=== PATIENT | male | born 1960 | race Caucasian/White ===

== ENCOUNTER → 2019-09-23 | Outpatient (CLI) | payer MEDICAID | END | disposition home or self-care (01) | LOC: LABPAT 12:21 | PROVIDERS: ATTEND Surgery Plastic and Reconstructive Surgery | DX: Z01.810 Encounter for preprocedural cardiovascular examination (principal) | CPT/HCPCS: 93005 ==

== ENCOUNTER → 2019-09-30 | Outpatient (CLI) | payer MEDICAID ==
--- NOTE | 2019-09-30 10:34 | FL ---
EXAMINATION TYPE: FL barium swallow DATE OF EXAM: 09/30/2019 CLINICAL HISTORY: Dysphasia TECHNIQUE: A double contrast esophagram is performed utilizing air and barium. A total of 26 second s of fluoroscopic time was utilized during procedure. 19 images submitted. COMPARISON: None FINDINGS: The esophagus shows normal motility and emptying into the stomach. No evidence of hiatal h ernia or stricture noted. Mild gastroesophageal reflux. Mild fold thickening of the distal esophagus correlate for mild esophagitis. Hypertrophic and degenerative change of the spine. IMPRESSION: Mild gastroesophageal reflux. Correlate for mild esophagitis. Correlate with direct visua lization as clinically warranted..
== END | disposition home or self-care (01) ==
LOC: RADUSWWP 09:50
PROVIDERS: ATTEND Surgery Plastic and Reconstructive Surgery
DX: K21.9 Gastro-esophageal reflux disease without esophagitis (principal)
CPT/HCPCS: 74220

== ENCOUNTER 2019-10-04 09:36 | Day surgery (SDC) | payer MEDICAID ==
[2019-10-01 09:48] VITALS: BMI 29.2
--- NOTE | 2019-10-04 06:28 | P.GSHP ---
History of Present Illness H&P Date: 10/04/19 CHIEF COMPLAINT: Inguinal hernia, right. HISTORY OF PRESENT ILLNESS: The patient is a 59-year-old male who presents with a history of swelling and pain along the right groin. He has noted increased swelling including pain of the area. Now he presents for repair of his inguinal hernia. PAST MEDICAL HISTORY: Please see list. PAST SURGICAL HISTORY: Please see list. MEDICATIONS: Please see list. ALLERGIES: Please see list. SOCIAL HISTORY: No illicit drug use FAMILY HISTORY: No reports of Crohn disease or ulcerative colitis. REVIEW OF ORGAN SYSTEMS: CONSTITUTIONAL: No reports of fevers or chills. No reports of weight loss despite prior attempts. GI: Denies any blood in stools or constipation. PHYSICAL EXAM: VITAL SIGNS: Stable GENERAL: Well-developed pleasant in no acute distress. HEENT: No scleral icterus. Extraocular movements grossly intact. Moist buccal mucosa. NECK: Supple without lymphadenopathy. CHEST: Unlabored respirations. Equal bilateral excursions. CARDIOVASCULAR: Regular rate and rhythm. Distal 2+ pulses. ABDOMEN: Soft, nondistended. No peritoneal signs. Tender along right groin. MUSCULOSKELETAL: No clubbing, cyanosis, or edema. ASSESSMENT: 1. Inguinal hernia, right initial and symptomatic. PLAN: 1. Recommend proceeding robotic inguinal repair with mesh with possible bilateral approach. 2. Benefits and risks of surgical intervention was discussed including possibility of open technique. 3. DVT prophylaxis. 4. Antibiotic prophylaxis. Past Medical History Past Medical History: No Reported History Additional Past Medical History / Comment(s): "heartburn", consitpation, History of Any Multi-Drug Resistant Organisms: None Reported Past Surgical History: Appendectomy, Cholecystectomy, Hernia Repair Additional Past Surgical History / Comment(s): vasectomy, left inguinal hernia Past Anesthesia/Blood Transfusion Reactions: Motion Sickness Smoking Status: Former smoker - Past Family History Mother Family Medical History: No Reported History Medications and Allergies Home Medications Medication Instructions Recorded Confirmed Type Ascorbic Acid [Vitamin C] 1,000 mg PO BID 10/01/19 10/01/19 History Cholecalciferol [Vitamin D3 (25 2,000 unit PO DAILY 10/01/19 10/01/19 History Mcg = 1000 Iu)] Multivitamins, Thera [Multivitamin 1 tab PO DAILY 10/01/19 10/01/19 History (formulary)] [place]-3 Fatty Acids/Fish Oil [Fish 1 each PO DAILY 10/01/19 10/01/19 History Oil 1,000 mg Softgel] Oregano Oil 1 applicate PO DAILY 10/01/19 10/01/19 History Phytonadione [Vitamin K] 100 mcg PO DAILY 10/01/19 10/01/19 History Zinc Gluconate [Zinc] 50 mg PO DAILY 10/01/19 10/01/19 History Allergies Allergy/AdvReac Type Severity Reaction Status Date / Time No Known Allergies Allergy Verified 10/01/19 09:36
[~2019-10-04 09:36] MED LIST: ACETAMINOPHEN TAB 500 MG TAB PO STA; DEXAMETHASONE SOD PHOSPHATE 10 MG/ML 1 ML VIAL IV ONE; GABAPENTIN 300 MG CAP PO STA; HEPARIN SODIUM,PORCINE 5,000 UNIT/ML 1 ML VIAL SQ ONE; ONDANSETRON 4 MG/2 ML VIAL IVP ONE; SCOPOLAMINE 1.5MG/72HR PATCH TRANSDERM ONE; TAMSULOSIN 0.4 MG CAP.ER.24H PO ONE
[2019-10-04] MEDS ORDERED: MIDAZOLAM 2 MG/2 ML VIAL IVP ONE ×2 (09:37)
[2019-10-04] MEDS ORDERED: fentaNYL (PF) 50 MCG/ML 2 ML AMP IVP ONE ×2 (09:37)
[2019-10-04] MEDS ORDERED: ONDANSETRON 4 MG/2 ML VIAL IVP ONE (09:37)
[2019-10-04] MEDS ORDERED: ACETAMINOPHEN TAB 500 MG TAB ONE (09:43)
[2019-10-04] MEDS ORDERED: ONDANSETRON 4 MG/2 ML VIAL ONE ×2 (10:04→11:44)
[2019-10-04] MEDS: LACTATED RINGERS 1,000 ML IV SCH ×3 (10:10→17:00)
[2019-10-04 10:14] LABS: Basophils # (A) 0.1 k/uL (0-0.2); Basophils % (A) 1 %; Eosinophils # (A) 0.4 k/uL (0-0.7); Eosinophils % (A) 5 %; HCT 50.1 % (39.0-53.0); Lymphocytes # (A) 1.8 k/uL (1.0-4.8); Lymphocytes % (A) 23 %; MCH 29.5 pg (25.0-35.0); MCV 86.7 fL (80.0-100.0); Mean Platelet Volume 6.9; Monocytes # (A) 0.5 k/uL (0-1.0); Monocytes % (A) 6 %; Neutrophils # (A) 4.8 k/uL (1.3-7.7); Neutrophils % (A) 63 %; Platelet Count 228 k/uL (150-450); RBC 5.78 m/uL (4.30-5.90); RDW 12.6 % (11.5-15.5); WBC 7.7 k/uL (3.8-10.6)
[2019-10-04 10:30] LABS: ALT 36 U/L (4-49); AST 30 U/L (17-59); African American GFR (CKD) >90 (>60 ml/min/1.73 sqM); Albumin 4.9 g/dL (3.5-5.0); Alkaline Phosphatase 68 U/L (38-126); Anion Gap 10 mmol/L; Blood Urea Nitrogen 17 mg/dL (9-20); Calcium 9.7 mg/dL (8.4-10.2); Carbon Dioxide 24 mmol/L (22-30); Chloride 104 mmol/L (98-107); Glucose 115 mg/dL (74-99); Non-African American GFR(CKD) >90 (>60 ml/min/1.73 sqM); Potassium 4.2 mmol/L (3.5-5.1); Sodium 138 mmol/L (137-145); Total Bilirubin 2.4 mg/dL (0.2-1.3); Total Protein 7.7 g/dL (6.3-8.2)
[2019-10-04] MEDS ORDERED: fentaNYL (PF) 50 MCG/ML 2 ML AMP ONE (11:44)
[2019-10-04] MEDS ORDERED: GLYCOPYRROLATE 0.2 MG/ML 2 ML VIAL ONE (11:44)
[2019-10-04] MEDS ORDERED: ePHEDrine SULFATE/0.9% NACL/PF 50 MG/5 ML SYRINGE IV ONE (11:44)
[2019-10-04] MEDS ORDERED: NEOSTIGMINE 1 MG/ML 10 ML VIAL ONE (11:44)
[2019-10-04] MEDS ORDERED: SUCCINYLCHOLINE CHLORIDE 100 MG/5 ML SYR IV ONE (11:44)
[2019-10-04] MEDS ORDERED: MIDAZOLAM 2 MG/2 ML VIAL ONE (11:44)
[2019-10-04] MEDS ORDERED: PROPOFOL 10 MG/ML 20 ML VIAL IV ONE (11:44)
[2019-10-04] MEDS ORDERED: PHENYLEPHRINE-0.9% NACL SYG 1 MG/10 ML SYRINGE ONE (11:44)
[2019-10-04] MEDS ORDERED: LIDOCAINE 1% INJ 10MG/ML (20 ML MDV) ONE (11:44)
[2019-10-04] MEDS ORDERED: ROCURONIUM BROMIDE 10 MG/ML 5 ML VIAL IV ONE (11:44)
[2019-10-04] MEDS ORDERED: LIDOCAINE 1%-EPI 1:100,000 20 ML VIAL SQ ONE (12:18)
[2019-10-04] MEDS ORDERED: LACTATED RINGERS 1,000 ML IV ONE (12:25)
[2019-10-04] MEDS: HYDROmorphone 0.5 MG/0.5 ML SYRINGE IVP PRN ×4 (13:43→14:15)
[2019-10-04 13:49] VITALS: TEMP 97.4
--- NOTE | 2019-10-04 13:55 | P.OP ---
Date of Procedure: 10/04/19 Description of Procedure: SURGEON: GIN BA MD PREOPERATIVE DIAGNOSES: 1. Initial right inguinal hernia. 2. Previous history of left inguinal hernia 3. Gastroesophageal reflux disease 4. Previous history of ruptured appendicitis POSTOPERATIVE DIAGNOSES: 1. Initial right inguinal hernia with incarceration, omentum 2. Previous history of left inguinal hernia 3. Gastroesophageal reflux disease 4. Previous history of ruptured appendicitis 5. Severe right lower quadrant and right upper quadrant peritoneal adhesions OPERATION: 1. Robotic-assisted da Jorge Xi laparoscopic lysis of adhesions, over 30 minutes 2. Robotic-assisted da Jorge Xi laparoscopic repair of incarcerated initial right inguinal hernia with mesh, 11.[address] ANESTHESIA: General with local anesthetic ESTIMATED BLOOD LOSS: 5 mL. SPECIMENS REMOVED: Right inguinal hernia sac COMPLICATIONS: None. FINDINGS: 1. Nyhus type I indirect inguinal hernia, reducible, initial, 2 cm 2. Non-absorbable 2-0 VLOC used 3. Moderate peritoneal adhesions omentum to abdominal wall right upper quadrant to right lower quadrant. 4. Incarcerated greater omentum in right inguinal hernia reduced 5. No recurrent left inguinal hernia INDICATIONS: The patient is a 59-year-old gentleman who presents with history of right groin pain. He has previous history of ruptured appendicitis with recurrent right upper and right lower quadrant abdominal pain including previous left inguinal hernia surgery. Now presents for definitive surgical intervention. Laparoscopic versus open and robotic approaches were discussed. Benefits and risks including bleeding, infection, injury to the vas deferens as well as sterility and chronic groin pain were reviewed. Placement of mesh was also described. Informed consent was obtained. DESCRIPTION: In the preoperative area, the patient was marked with indelible marker along the inguinal hernia. The patient was brought to the operating room and initially laid in supine position. The abdomen had been prepped and draped in standard sterile fashion. Ioban draping was also placed. Prior to incision, a timeout protocol was confirmed with surgical team regarding patient's name including procedures to be performed and location along the right groin. Initial positioning for the robotic assisted ports were selected whereby 20 cm superior to the target anatomy, 0 degree 5 mm laparoscopic trocar entry was performed at the left upper quadrant. The abdomen was insufflated to 15 mmHg which he had tolerated well. Diagnostic laparoscopy demonstrated a indirect inguinal hernia along the right groin. Next, along the epigastrium, 8 mm robot trocar was placed. An 8-mm robotic trocar was placed under direct visualization at the right upper quadrant. An 8 mm port was placed at the left upper quadrant. All trocars were positioned between 8 to 10-cm apart from each other. The [employer] XI robot was primed, draped, prepared for docking along the right side of the patient. The patient was placed in Trendelenberg position 16-degrees. I then went to the [employer] Xi console. The assistant commissioner was at bedside for exchange of the robot arms and equipment. Moderate peritoneal adhesions of greater omentum to abdominal wall was found inv olving the right upper and right lower quadrant. The greater omentum was incarcerated in the right inguinal hernia. Extensive lysis of adhesions over 30 minutes was performed using scissors with cautery including vessel sealer. All adhesions were taken down including at the hernia sac. No hernia was identified along the left groin. The right inguinal hernia sac was evaginated whereby the peritoneum was scored using Endo scissors with cautery. Once completely reduced into the abdominal cavity, the peritoneal sac of the hernia was stripped along an indirect inguinal hernia and sac was resected and then passed off for further pathological analysis. The size of the hernia defect was 2 cm with intraoperative films obtained. Using a 2-0 VLOC, the peritoneal defect of the right inguinal hernia site was closed using a pursestring suture. The defect was found to be completely closed with complete reduction of the right direct inguinal hernia was confirmed. As an onlay, an 11.[address] mesh by [employer] was initially cut in half and entered into the abdominal cavity via the 8 mm trocar. The mesh was tacked to the pelvis using 2-0 VLOC 9-inch length sutures. The robot was undocked from the patient's bedside. I then rescrubbed into the case. Insufflation was released from the abdominal cavity and all instruments were removed from the abdominal cavity. The rest of incisions were reapproximated using 4-0 Monocryl in a running subcuticular fashion. Local anesthetic was placed along the incision including for a right groin block. Incisions were cleansed using dilute hydrogen peroxide. Liquid glue was applied to the skin. At the end of the procedure, the needle, sponge and instrument counts had been verified correct by the surgical services tech. The patient had tolerated the procedure well and was taken to the postanesthesia care unit in stable condition. Plan - Discharge Summary Discharge Rx Participant: Yes New Discharge Prescriptions: New Ibuprofen [Motrin] 600 mg PO Q8HR PRN #30 tab PRN Reason: Pain Acetaminophen Tab [Tylenol Tab] 1,000 mg PO Q6HR PRN #30 tablet PRN Reason: Pain Continue Zinc Gluconate [Zinc] 50 mg PO DAILY Phytonadione [Vitamin K] 100 mcg PO DAILY Ascorbic Acid [Vitamin C] 1,000 mg PO BID Multivitamins, Thera [Multivitamin (formulary)] 1 tab PO DAILY [place]-3 Fatty Acids/Fish Oil [Fish Oil 1,000 mg Softgel] 1 each PO DAILY Cholecalciferol [Vitamin D3 (25 Mcg = 1000 Iu)] 2,000 unit PO DAILY Oregano Oil 1 applicate PO DAILY Discharge Medication List Ascorbic Acid [Vitamin C] 1,000 mg PO BID 10/01/19 [History] Cholecalciferol [Vitamin D3 (25 Mcg = 1000 Iu)] 2,000 unit PO DAILY 10/01/19 [History] Multivitamins, Thera [Multivitamin (formulary)] 1 tab PO DAILY 10/01/19 [History] [place]-3 Fatty Acids/Fish Oil [Fish Oil 1,000 mg Softgel] 1 each PO DAILY 10/01/19 [History] Oregano Oil 1 applicate PO DAILY 10/01/19 [History] Phytonadione [Vitamin K] 100 mcg PO DAILY 10/01/19 [History] Zinc Gluconate [Zinc] 50 mg PO DAILY 10/01/19 [History] Acetaminophen Tab [Tylenol Tab] 1,000 mg PO Q6HR PRN #30 tablet 10/04/19 [Rx] Ibuprofen [Motrin] 600 mg PO Q8HR PRN #30 tab 10/04/19 [Rx] Follow up Appointment(s)/Referral(s): Gin Ba MD [STAFF PHYSICIAN] - 10/12/19 Patient Instructions/Handouts: Inguinal Hernia Repair (DC), Laparoscopic Herniorrhaphy (IP) Activity/Diet/Wound Care/Special Instructions: No lifting over 10 pounds in 2 weeks until Oct 24June shower. No bath tub soaks for two weeks until Oct 24 Diet as tolerated. Use Tylenol and ibuprofen or Aleve scheduled for the next 24-48 hours for best pain relief. Use ice along incisions for the today to prevent swelling. Discharge Disposition: HOME SELF-CARE
[2019-10-04 17:17] VITALS: BP 103/67; PULSE 60; RESP 18
== END 2019-10-04 17:20 | disposition home or self-care (01) ==
LOC: OR 09:36
PROVIDERS: ATTEND Surgery Plastic and Reconstructive Surgery
DX: K40.30 Unilateral inguinal hernia, with obstruction, without gangrene, not specified as recurrent (principal); K66.0 Peritoneal adhesions (postprocedural) (postinfection); K21.9 Gastro-esophageal reflux disease without esophagitis; Z87.19 Personal history of other diseases of the digestive system; Z79.899 Other long term (current) drug therapy; Z87.891 Personal history of nicotine dependence; Z90.49 Acquired absence of other specified parts of digestive tract; Z98.52 Vasectomy status; Z98.890 Other specified postprocedural states
CPT/HCPCS: 80053; 85025; 49650; J1644; J1100; J0690; J2405; J1170; 88302

== ENCOUNTER → 2021-05-23 | Outpatient (CLI) | payer MEDICAID ==
--- NOTE | 2021-05-23 11:08 | CONS ---
CONSULTATION DATE OF SERVICE: 05/23/2021 This 60-year-old gentleman has been evaluated in [facility] for possible obstructive sleep apnea-hypopnea syndrome and significant excessive daytime sleepiness. HISTORY OF PRESENT ILLNESS/SLEEP-WAKE EVALUATION: Patient's usual sleep schedule on weekdays is from between 3 and 5 a.m. until 9 or 10 a.m., and on weekends from 4 or 5 a.m. until 9 or 10 a.m. He does have problems with falling asleep, although there is no TV in the bedroom. He usually sleeps in different positions, including side, stomach and back. He has loud snoring and witnessed episodes of stopped breathing during sleep, especially when on the back position. He wakes up with gasping for air, symptoms of restless legs and nocturia up to 3 times at night. In the morning the patient wakes up tired, has problems with memory, concentration, and feels sleepy during the day. [place] Sleepiness Scale is in very high range at 19, and this is with 3 cups of coffee a day. PAST MEDICAL HISTORY: Mostly negative. PAST SURGICAL HISTORY: Appendectomy, cholecystectomy, hernia repair. SOCIAL HISTORY: Positive for smoking in the past. Quit smoking about 15 years ago. Alcohol consumption: Beer occasionally. MEDICATIONS: Vitamins. FAMILY HISTORY: Hypertension and diabetes. REVIEW OF SYSTEMS: Multiple awakenings from sleep, loud snoring, sleepiness during the day. [place] Sleepiness Scale in very high range. No fevers. No double vision. No recent chest pain. No shortness of breath. No abdominal pain. No bleeding episodes. No blood in the urine. No seizure episodes. PHYSICAL EXAMINATION: GENERAL: Pleasant gentleman without distress. VITAL SIGNS: BP 122/85, HR 79, RR 14, height 5 feet 11-3/4 inches, weight 210 pounds, body mass index 28.7, temperature 97.1, oxygen saturation at room air 97%. HEENT: PERRLA, EOMI, evaluation of oropharynx showed tongue protrudes midline. Extremely low position of soft palate; Mallampati IV. NECK: Supple, no JVD. Thyroid is not palpable. Neck measures 16-1/2 inches in circumference. LUNGS: Clear to percussion and to auscultation. Good air exchange. No wheezing or rhonchi. HEART: S1, S2 regular. No murmurs, gallops, or rubs. ABDOMEN: Soft and nontender. Bowel sounds are present. No organomegaly appreciated. EXTREMITIES: No clubbing or cyanosis. [employer] CLERK: Awake, alert, and oriented X3. Cranial nerves 2 to 7 intact. There is no fasciculation or atrophy. noted. No focal deficits observed. IMPRESSION: 1. Loud snoring, witnessed episodes of stopped breathing during sleep, awakenings from sleep with gasping for air and nocturia, extremely low position of soft palate, Mallampati IV, sleepiness by [place] Sleepiness Scale; obstructive sleep apnea- hypopnea syndrome. 2. Very high level of [place] Sleepiness Scale at 19 with 3 cups of coffee during the day, dictating the necessity to include narcolepsy and idiopathic hypersomnia in differential diagnosis. 3. Status post appendectomy. 4. Status post cholecystectomy. 5. Status post hernia repair. PLAN: 1. Polysomnography for evaluation of patient's breathing during sleep. 2. CPAP/BiPAP titration if sleep study confirms obstructive sleep apnea-hypopnea syndrome. 3. Preferable position during sleep on the side. 4. No driving if patient feels any sleepiness. 5. I will see patient for follow up visit to explain results of testing and following plan. 6. After correction of obstructive sleep apnea-hypopnea syndrome, the patient may need a multiple sleep latency test for objective evaluation of symptoms of sleepiness if he continues to have sleepiness. Thank you very much for referring this patient for consultation. Sincerely, Abdi Wells MD, PhD, FAASM Diplomat of [place] [employer] Sleep Medicine Board of [place] [employer] of [facility] MMODL / IJN: [id number] /
== END ==
LOC: SLEEP 09:59
PROVIDERS: ATTEND Internal Medicine
DX: G47.33 Obstructive sleep apnea (adult) (pediatric) (principal); Z90.49 Acquired absence of other specified parts of digestive tract; Z98.890 Other specified postprocedural states; Z87.891 Personal history of nicotine dependence
CPT/HCPCS: 99211

== ENCOUNTER → 2021-12-14 | Outpatient (CLI) | payer MEDICAID ==
--- NOTE | 2021-12-14 09:43 | CT ---
EXAMINATION TYPE: CT abdomen pelvis w con DATE OF EXAM: 12/14/2021 COMPARISON: None HISTORY: Diarrhea, vomiting and abnormal weight loss. CT DLP: 835 mGycm CONTRAST: CT scan of the abdomen and pelvis is performed with Oral Contrast and with IV Contrast, patient injec juan david with 70ml mL of Isovue 300. FINDINGS: LUNG BASES-: No visible nodule. No infiltrate. LIVER/GB: The gallbladder is surgically absent. No space occupying hepatic lesion. Biliary tree is of normal caliber. PANCREAS: No inflammation. No distinct mass. SPLEEN: No splenic enlargement. No lesion seen. ADRENALS: No nodule. No thickening. KIDNEYS/BLADDER: No hydronephrosis. No nephrolithiasis. 8 cm simple cyst lower pole right kidney. N o solid renal mass is detected. Urinary bladder grossly unremarkable. BOWEL: Normal appendix. Normal bowel caliber. No inflammation. GENITAL ORGANS: No gross abnormality. LYMPH NODES: No greater than 1cm abdominal or pelvic lymph nodes are appreciated. AORTA: No significant abnormality. OSSEOUS STRUCTURES: No significant abnormality is seen. OTHER: No significant additional abnormality is seen. IMPRESSION: 1. No significant abnormality seen to account for the patient's symptoms.
== END | disposition home or self-care (01) ==
LOC: RADCTMAIN 07:16
PROVIDERS: ATTEND Family Medicine
DX: R19.7 Diarrhea, unspecified (principal); R63.4 Abnormal weight loss
CPT/HCPCS: 74177; Q9967

== ENCOUNTER → 2022-02-13 | Outpatient (CLI) | payer MEDICAID ==
--- NOTE | 2022-02-13 16:11 | XR ---
EXAMINATION TYPE: XR chest 2V DATE OF EXAM: 02/13/2022 COMPARISON: NONE TECHNIQUE: PA and lateral views submitted. HISTORY: Cough FINDINGS: The lungs are clear and there is no pneumothorax, pleural effusion, or focal pneumonia. Heart size normal. No overt failure. Hyperinflation of the lungs. Hypertrophic and degenerative change of the sp ine. IMPRESSION: 1. No acute process. Correlate for COPD.
--- NOTE | 2022-02-13 16:13 | XR ---
EXAMINATION TYPE: XR knee complete RT DATE OF EXAM: 02/13/2022 COMPARISON: NONE HISTORY: Pain TECHNIQUE: Three views are submitted. FINDINGS: There is mild diffuse osteopenia. There is narrowing medial compartment of the knee joint and patello femoral joint. No erosive changes. Questionable lucent defect involving the posterior margin of the p atella. Sclerotic lesion measuring 1.2 cm distal diaphysis femur. IMPRESSION: 1. Osteoarthritis. Could be a subchondral defect involving the posterior margin patella consider foll ow-up MRI. 2. Sclerotic lesion distal diaphysis femur most typical of a small bone infarct.
== END | disposition home or self-care (01) ==
LOC: RADXRYALE 15:08
PROVIDERS: ATTEND Physician Assistant
DX: M17.11 Unilateral primary osteoarthritis, right knee (principal); M89.8X5 Other specified disorders of bone, thigh; R05.9 Cough, unspecified; R06.02 Shortness of breath
CPT/HCPCS: 71046

== ENCOUNTER → 2022-02-26 | Outpatient (CLI) | payer MEDICAID ==
--- NOTE | 2022-02-27 04:58 | MR ---
EXAMINATION TYPE: MR knee RT wo con DATE OF EXAM: 02/26/2022 COMPARISON: None HISTORY: Right knee pain and swelling, abnormal X-RAY Multiplanar multiecho imaging of the right knee performed without contrast. The anterior and posterior cruciate ligaments are intact. There is a mild knee joint effusion. There is a large horizontal tear through the posterior horn of the medial meniscus. The lateral meniscus is intact. Collateral ligaments are intact. There is mild narrowing of the medial joint space. There is a 1 cm area of increased signal in the subchondral medial tibial condyle. There is some mild edema a lso in the medial aspect medial tibial condyle. No fracture line seen. The patella shows a 7 mm degen erative cyst formation. IMPRESSION: Large horizontal tear of the posterior horn medial meniscus. There is a small horizontal tear of the anterior horn medial meniscus extending to the inferior surface. Knee joint effusion. Evidence of mil d bone bruise of the medial tibial condyle. Mild subcutaneous edema over the anterior knee.
== END | disposition home or self-care (01) ==
LOC: RADMRIMAIN 10:38
PROVIDERS: ATTEND Physician Assistant
DX: M23.221 Derangement of posterior horn of medial meniscus due to old tear or injury, right knee (principal); M23.211 Derangement of anterior horn of medial meniscus due to old tear or injury, right knee; M25.461 Effusion, right knee; R60.0 Localized edema; S80.01XA Contusion of right knee, initial encounter

== ENCOUNTER → 2022-05-01 | Outpatient (CLI) | payer MEDICAID ==
--- NOTE | 2022-05-01 14:25 | XR ---
EXAMINATION TYPE: XR ankle complete RT DATE OF EXAM: 05/01/2022 COMPARISON: NONE HISTORY: Pain FINDINGS: Three views of the ankle demonstrate the ankle mortise to be intact and symmetric. The joint spaces are preserved. The osseous structures are intact. Diffuse osteopenia. There is a pes planus deformi ty and small plantar calcaneal spur. Sclerotic density involving the calcaneus suggestive of bone isl and. There appears to be arthropathy of the talonavicular joint. IMPRESSION: 1. No definite acute fracture or dislocation, if symptoms persist follow-up study in 7 to 10 days wou ld be suggested. 2. Diffuse osteopenia with severe arthropathy of the talonavicular joint partially included in the fi eld-of-view. Recommend dedicated foot series. 3. Pes planus deformity
== END | disposition home or self-care (01) ==
LOC: RADXRYALE 13:04
PROVIDERS: ATTEND Physician Assistant
DX: M19.071 Primary osteoarthritis, right ankle and foot (principal); M21.41 Flat foot [pes planus] (acquired), right foot; M85.88 Other specified disorders of bone density and structure, other site

== ENCOUNTER → 2022-05-08 | Outpatient (CLI) | payer MEDICAID ==
--- NOTE | 2022-05-08 13:45 | XR ---
EXAMINATION TYPE: XR foot complete RT DATE OF EXAM: 05/08/2022 COMPARISON: 05/01/2022 HISTORY: Pain TECHNIQUE: 4 views are submitted. FINDINGS: The osseous structures are intact. There is no acute fracture or dislocation. Joint spaces are p reserved. Small plantar calcaneal spur. Pes planus. There is severe arthropathy of the talonavicular joint. Hypertrophic arthropathy first MTP. Sclerotic density involving the calcaneus compatible with bone islands. IMPRESSION: 1. No acute fracture or dislocation. If symptoms persist, follow-up exam in 7 to 10 days could be ob tained. 2. Pes planus forming severe arthropathy of the talonavicular joint. This likely is chronic. There is concern for a stress-induced injury correlate with MRI of the foot.
== END | disposition home or self-care (01) ==
LOC: RADXRYALE 13:02
PROVIDERS: ATTEND Physician Assistant
DX: M19.071 Primary osteoarthritis, right ankle and foot (principal); M21.41 Flat foot [pes planus] (acquired), right foot

== ENCOUNTER → 2022-09-25 | Outpatient (CLI) | payer MEDICAID ==
--- NOTE | 2022-09-25 12:54 | XR ---
EXAMINATION TYPE: XR chest 2V DATE OF EXAM: 09/25/2022 COMPARISON: 02/13/2022 TECHNIQUE: PA and lateral views submitted. HISTORY: Cough and wheezing FINDINGS: The lungs are clear and there is no pneumothorax, pleural effusion, or focal pneumonia. Heart size normal and no overt failure. Osseous structures demonstrate hypertrophic and degenerative changes of the spine. Hyperinflation. Atherosclerotic change aorta. Biapical pleural thickening. IMPRESSION: 1. No acute process. Correlate for COPD.
== END | disposition home or self-care (01) ==
LOC: RADXRYALE 11:43
PROVIDERS: ATTEND Physician Assistant Medical
DX: R05.9 Cough, unspecified (principal); R06.02 Shortness of breath; R06.2 Wheezing
CPT/HCPCS: 71046